=== PATIENT | female | born 1960 | race Caucasian/White ===

== ENCOUNTER 2017-07-11 14:33 | Emergency (ER) | payer OTHER ==
[~2017-07-11] VITALS: Ht 157.5 cm; Wt 59.5 kg
[~2017-07-11 14:33] MED LIST: ACET1TAB16 PO; ALPR0.25 PO; AMOX1TAB10 PO; ATOR80TA75 PO; CIPR500T4 PO; HYDR-762 PO; HYDR-906 PO; IBUP-1542 PO; IBUP800T25 PO; LEVO300T5 PO; METR500T PO; OMEP40CA6 PO; ONDA4TAB35 PO; RANI300C7 PO
[2017-07-11 14:38] VITALS: Ht 157.5 cm; Wt 59.5 kg
[2017-07-11] MEDS ORDERED: ONDANSETRON 4 MG INJ IV STA (15:37)
[2017-07-11] MEDS ORDERED: morphine 4 MG/ML VIAL IV STA (15:37)
[2017-07-11] MEDS ORDERED: LIDOCAINE/MYLANTA 40 ML BTL PO STA (15:37)
[2017-07-11] MEDS ORDERED: SOD CHLORIDE 0.9% 1,000 ML IV STA (15:37)
[2017-07-11 15:58] LABS: BASOPHIL # 0.1 10^3/ul (0.0-0.1); BASOPHILS % 0.7 % (0.0-2.0); EOSINOPHILS # 0.2 10^3/ul (0.0-0.5); EOSINOPHILS % 2.6 % (0.0-7.0); HEMATOCRIT 42.2 % (37.0-47.0); HEMOGLOBIN 14.4 g/dl (12.0-16.0); LYMPHOCYTES # 2.6 10^3/ul (0.8-2.9); LYMPHOCYTES % 37.7 % (15.0-51.0); MEAN CORPUSCULAR HEMOGLOBIN 31.8 pg (29.0-33.0); MEAN CORPUSCULAR HGB CONC 34.1 g/dl (32.0-37.0); MEAN CORPUSCULAR VOLUME 93.2 fl (82.0-101.0); MEAN PLATELET VOLUME 10.4 fl (7.4-10.4); MONOCYTE # 0.5 10^3/ul (0.3-0.9); MONOCYTES % 6.9 % (0.0-11.0); NEUTROPHIL # 3.5 10^3/ul (1.6-7.5); NEUTROPHILS % 51.7 % (39.0-77.0); PLATELET COUNT 227 10^3/UL (140-415); RED BLOOD COUNT 4.53 10^6/ul (4.20-5.40); RED CELL DISTRIBUTION WIDTH 12.3 % (11.5-14.5); WHITE BLOOD COUNT 6.9 10^3/ul (4.8-10.8)
[2017-07-11 16:17] LABS: ALANINE AMINOTRANSFERASE 23 IU/L (13-69); ALBUMIN 4.5 g/dl (3.3-4.9); ALBUMIN/GLOBULIN RATIO 1.21; ALKALINE PHOSPHATASE 117 IU/L (42-121); ANION GAP 11 (8-16); ASPARTATE AMINO TRANSFERASE 20 IU/L (15-46); BILIRUBIN,INDIRECT 0.1 mg/dl (0-1.1); BILIRUBIN,TOTAL 0.1 mg/dl (0.2-1.3); BLOOD UREA NITROGEN 13 mg/dl (7-20); CALCIUM 9.9 mg/dl (8.4-10.2); CARBON DIOXIDE 29 mmol/L (21-31); CHLORIDE 106 mmol/L (97-110); CREATININE 0.72 mg/dl (0.44-1.00); GLUCOSE 109 mg/dl (70-220); POTASSIUM 4.3 mmol/L (3.5-5.1); SODIUM 142 mmol/L (135-144); TOTAL PROTEIN 8.2 g/dl (6.1-8.1)
[2017-07-11] MEDS ORDERED: CARI350T29 PO (16:17)
[2017-07-11 16:25] LABS: UR RBC 0 /HPF (0-5); UR SQUAMOUS EPITHELIAL CELL FEW /HPF (FEW)
[2017-07-11 16:26] LABS: ADD UMIC YES; UR ASCORBIC ACID NEGATIVE (NEGATIVE); UR BILIRUBIN (Dip) NEGATIVE (NEGATIVE); UR BLOOD (Dip) NEGATIVE (NEGATIVE); UR CLARITY CLEAR (CLEAR); UR COLOR STRAW (YELLOW); UR GLUCOSE (Dip) NEGATIVE (NEGATIVE); UR KETONES (Dip) NEGATIVE (NEGATIVE); UR LEUKOCYTE ESTERASE (Dip) TRACE Leu/ul (NEGATIVE); UR NITRITE (Dip) NEGATIVE (NEGATIVE); UR SPECIFIC GRAVITY (Dip) 1.014 (1.003-1.030); UR TOTAL PROTEIN (Dip) NEGATIVE (NEGATIVE); UR UROBILINOGEN (Dip) NEGATIVE (NEGATIVE)
[2017-07-11] MEDS ORDERED: LEVO88TA3 PO (16:26)
[2017-07-11 16:30] LABS: TROPONIN-I < 0.012 ng/ml (0.00-0.12)
[2017-07-11] MEDS ORDERED: HYDR-906 PO (16:38)
[2017-07-11] MEDS ORDERED: ONDA4TAB14 PO (16:38)
--- NOTE | 2017-07-11 16:40 | ERD ---
ER Documentation Chief Complaint Date/Time DATE: 07/11/17 TIME: 16:40 Chief Complaint left sided abdominal pain since last night HPI Patient is a 57-year-old female with no medical problems who presents with abdominal pain. The patient has had abdominal pain for the past 3 weeks. The pain is diffuse and constant. It is now worse in the left upper quadrant. She tried [employer] for pain. She has no fevers. She has had nausea and vomiting she had pain with urination. She did have a CT scan of the abdomen and pelvis done in September 2015. Upon review of old medical records this is the patient's 10th visit to the ER since 2013. She goes to the [facility] for her care ROS All systems reviewed and are negative except as per history of present illness. Medications Home Meds Active Scripts Ondansetron (Ondansetron Odt) 4 Mg Tab.rapdis, 4 MG PO Q6H Y for NAUSEA AND/OR VOMITING, #10 TAB Prov:HUSEYIN PETER MD 07/11/17 Hydrocodone/Acetaminophen ([employer] 5-325 Tablet) 1 Each Tablet, 1 TAB PO Q6H Y for PAIN, #7 TAB Prov:HUSEYIN PETER MD 07/11/17 Hydrocodone Bit-Acetaminophen* ([employer]*) 10-325 Mg Tablet, 1 TAB PO Q6 Y for PAIN , #10 TAB Prov:SHRUTI MCKNIGHT 10/02/15 Reported Medications Levothyroxine Sodium* (Levothyroxine Sodium*) 88 Mcg Tablet, 88 MCG PO BEFORE BREAKFAST, #30 TAB 07/11/17 Carisoprodol* (Carisoprodol*) 350 Mg Tablet, 350 MG PO Q8 Y for MUSCLE SPASMS, TAB 07/11/17 Discontinued Reported Medications Atorvastatin* (Atorvastatin*) 80 Mg Tablet, 80 MG PO QHS, TAB 10/02/15 Omeprazole* (Omeprazole*) 40 Mg Capsule.dr, 40 MG PO DAILY Y for GASTROINTESTINAL UPSET 01/09/14 Levothyroxine Sodium* (Levothyroxine Sodium*) 300 Mcg Tablet, 88 MCG PO DAILY 01/09/14 Ranitidine Hcl (Ranitidine Hcl) 300 Mg Capsule, 300 MG PO HS Y for GASTROINTESTINAL UPSET 01/09/14 Discontinued Scripts Ibuprofen* (Motrin*) 800 Mg Tab, 800 MG PO Q6H Y for PAIN AND OR ELEVATED TEMP, #30 TAB Prov:JOSE DENNIS. [address] MAGISTRATE 07/07/16 Acetaminophen/Caffeine (Excedrin Tension Headache Cplt) 1 Each Tablet, 1 EACH PO Q6 Y for HEADACHE, #30 TAB Prov:SONNYJOSE X. [address]IP[address] [employer] MAGISTRATE 07/07/16 Ondansetron Hcl* (Zofran* ODT) 4 mg -ODT Tab.disper, 4 MG PO Q6 Y for NAUSEA AND /OR VOMITING, #10 TAB Prov:ADANSHRUTI JOHN S. 10/02/15 Metronidazole* (Flagyl*) 500 Mg Tablet, 500 MG PO TID for 7 Days, TAB Prov:ADANMAGGIEDAMSHRUTI S. 10/02/15 Ciprofloxacin Hcl* (Ciprofloxacin Hcl*) 500 Mg Tablet, 500 MG PO BID for 7 Days , TAB Prov:CORETTAMURALISHRUTI S. 10/02/15 Allergies Allergies: Coded Allergies: No Known Drug Allergies (Verified Allergy, Unknown, 07/11/17) PMhx/Soc History of Surgery: No Anesthesia Reaction: No Hx Neurological Disorder: No Hx Respiratory Disorders: No Hx Cardiac Disorders: Yes (High Cholesterol) Hx Psychiatric Problems: No Hx Miscellaneous Medical Probl: Yes (GASTRITIS) Hx Alcohol Use: No Hx Substance Use: No Hx Tobacco Use: Yes FmHx Family History: No diabetes Physical Exam Vitals Vital Signs Date Time Temp Pulse Resp B/P Pulse Ox O2 Delivery O2 Flow Rate FiO2 07/11/17 17:27 98.1 76 18 122/66 100 Room Air 07/11/17 14:38 98.0 84 18 129/62 100 Physical Exam Const: Moderate distress secondary to pain Head: Atraumatic Eyes: Normal Conjunctiva ENT: Normal External Ears, Nose and Mouth. Neck: Full range of motion..~ No meningismus. Resp: Clear to auscultation bilaterally Cardio: Regular rate and rhythm, no murmurs Abd: Soft, Left upper quadrant tenderness to palpation without rebound or guarding Skin: No petechiae or rashes Back: No midline or flank tenderness Ext: No cyanosis, or edema Neur: Awake and alert Psych: Normal Mood and Affect Result Diagram: 07/11/17 1511 07/11/17 1511 Results 24 hrs Laboratory Tests Test 07/11/17 15:11 07/11/17 15:41 White Blood Count 6.910^3/ul Red Blood Count 4.5310^6/ul Hemoglobin 14.4g/dl Hematocrit 42.2% Mean Corpuscular Volume 93.2fl Mean Corpuscular Hemoglobin 31.8pg Mean Corpuscular Hemoglobin Concent 34.1g/dl Red Cell Distribution Width 12.3% Platelet Count 60505^3/UL Mean Platelet Volume 10.4fl Neutrophils % 51.7% Lymphocytes % 37.7% Monocytes % 6.9% Eosinophils % 2.6% Basophils % 0.7% Nucleated Red Blood Cells % 0.0/100WBC Neutrophils # 3.510^3/ul Lymphocytes # 2.610^3/ul Monocytes # 0.510^3/ul Eosinophils # 0.210^3/ul Basophils # 0.110^3/ul Nucleated Red Blood Cells # 0.010^3/ul Sodium Level 142mmol/L Potassium Level 4.3mmol/L Chloride Level 106mmol/L Carbon Dioxide Level 29mmol/L Anion Gap 11 Blood Urea Nitrogen 13mg/dl Creatinine 0.72mg/dl Glucose Level 109mg/dl Calcium Level 9.9mg/dl Total Bilirubin 0.1mg/dl Direct Bilirubin 0.00mg/dl Indirect Bilirubin 0.1mg/dl Aspartate Amino Transf (AST/SGOT) 20IU/L Alanine Aminotransferase (ALT/SGPT) 23IU/L Alkaline Phosphatase 117IU/L Troponin I < 0.012ng/ml Total Protein 8.2g/dl Albumin 4.5g/dl Globulin 3.70g/dl Albumin/Globulin Ratio 1.21 Lipase 59U/L Urine Color STRAW Urine Clarity CLEAR Urine pH 7.0 Urine Specific Ol[place] 1.014 Urine Ketones NEGATIVEmg/dL Urine Nitrite NEGATIVEmg/dL Urine Bilirubin NEGATIVEmg/dL Urine Urobilinogen NEGATIVEmg/dL Urine Leukocyte Esterase TRACELeu/ul Urine Microscopic RBC 0/HPF Urine Microscopic WBC 2/HPF Urine Squamous Epithelial Cells FEW/HPF Urine Hemoglobin NEGATIVEmg/dL Urine Glucose NEGATIVEmg/dL Urine Total Protein NEGATIVEmg/dl Current Medications Medications (Trade) Dose Ordered Sig/Stanton Route PRN Reason Start Time Stop Time Status Last Admin Dose Admin Sodium Chloride (NS) 1,000 ml @ 1,000 mls/hr Q1H STAT IV 07/11/17 15:37 07/11/17 16:36 DC 07/11/17 15:54 Morphine Sulfate (morphine) 4 mg ONCE STAT IV 07/11/17 15:37 07/11/17 15:38 DC 07/11/17 15:54 Ondansetron HCl (Zofran Inj) 4 mg ONCE STAT IV 07/11/17 15:37 07/11/17 15:38 DC 07/11/17 15:54 Miscellaneous Medication (Gi Cocktail (2)) 40 ml ONCE STAT PO 07/11/17 15:37 07/11/17 15:38 DC 07/11/17 15:54 Procedures/MDM EKG read by me: Rate/Rhythm: Regular rate and rhythm at a rate of 78 Intervals: Normal Impression: No evidence of ischemia or arrhythmia Patient is a 57-year-old female who presents with abdominal pain. She was given pain medications and feels better. Laboratory studies are basically normal. EKG shows no signs of ischemia. At this point I doubt acute coronary syndrome, cholecystitis, pancreatitis, appendicitis, or bowel obstruction. I believe outpatient management is appropriate. The patient will need close follow-up with her primary doctor within 24 hours for evaluation. Departure Diagnosis: Primary Impression: Abdominal pain Abdominal location: left upper quadrant Qualified Code: R10.12 - Left upper quadrant pain Condition: Fair Patient Instructions: Abdominal Pain, Vomiting (6Y-Adult) Referrals: MARY ANNE GONZALEZ (PCP) Additional Instructions: Llame al doctor MAANA y berenice fracisco YAN PARA DENTRO DE 1-2 ALLEN.Dgale a la secretaria que nosotros le instruimos hacer esta yan.Avise o llame si ham condicin se empeora antes de la yan. Regresa aqui si peor o no mejor. HUSEYIN PETER MD Jul 11, 2017 16:40
[2017-07-11 17:27] VITALS: BP 122/66; PULSE 76; RESP 18; TEMP 98.1
== END 2017-07-11 17:29 | disposition home or self-care (01) ==
LOC: E/R 14:33
DX: R10.12 Left upper quadrant pain (principal); R11.2 Nausea with vomiting, unspecified; Z87.891 Personal history of nicotine dependence
CPT/HCPCS: 36415; 80053; 81001; 83690; 84484; 85025; 93005; 96374; 96375; J2270; J2405; J7030; Z7502; Z7610

== ENCOUNTER 2018-03-02 11:34 | Emergency (ER) | END 2018-03-02 18:51 | disposition home or self-care (01) ==

== ENCOUNTER 2018-07-27 17:05 | Emergency (ER) | END 2018-07-27 23:03 | disposition home or self-care (01) ==

== ENCOUNTER 2018-09-30 13:33 | Emergency (ER) | END 2018-09-30 19:37 | disposition home or self-care (01) ==